=== PATIENT | male | born 1985 ===

== ENCOUNTER 2017-05-17 12:15 | Emergency (ER) | payer OTHER, SELFPAY ==
[2017-05-17 12:40] VITALS: BP 143/78; PULSE 78; RESP 16; TEMP 98.3; O2SAT 97
[2017-05-17] MEDS ORDERED: Naproxen 500 MG TAB PO STA (13:44)
--- NOTE | 2017-05-17 13:47 | ED PDOC ---
HPI: Headache Time Seen by Provider: 05/17/17 13:39 Chief Complaint (Nursing): Headache Chief Complaint (Provider): Headache History Per: Patient History/Exam Limitations: no limitations Onset/Duration Of Symptoms: Days (x 3) Current Symptoms Are (Timing): Still Present Additional Complaint(s): Antonio is a 31 y/o male who presents to the ED complaining of a continuous right- sided headache for the past 3 days. Patient denies fall, nausea, vomiting, fever or chills. He notes right sided upper gingival gum pain and states he feels he may be getting a molar. PMD: None Provided Past Medical History Reviewed: Historical Data, Nursing Documentation, Vital Signs Vital Signs: Last Vital Signs Temp 98.3 F 05/17/17 12:36 Pulse 78 05/17/17 12:36 Resp 16 05/17/17 12:36 BP 143/78 05/17/17 12:36 Pulse Ox 97 05/17/17 12:36 - Medical History PMH: No Chronic Diseases - Family History Family History: States: Unknown Family Hx - Home Medications Home Medications: Ambulatory Orders Medication Instructions Recorded Guaifenesin [Mucinex] 1,200 mg PO BID #14 ter 11/04/14 Ibuprofen [Motrin] 600 mg PO Q8 #20 tab 11/16/14 Naproxen 1 tab PO Q12 PRN #14 tab 05/17/17 Penicillin VK [Penicillin VK Tab] 500 mg PO QID #40 tab 05/17/17 - Allergies Allergies/Adverse Reactions: Allergies Allergy/AdvReac Type Severity Reaction Status Date / Time No Known Allergies Allergy Verified 05/17/17 12:36 Review of Systems ROS Statement: Except As Marked, All Systems Reviewed And Found Negative Constitutional: Negative for: Fever, Chills ENT: Positive for: Mouth Pain (upper gingival gum paim) Gastrointestinal: Negative for: Nausea, Vomiting Neurological: Positive for: Headache (right sided) Physical Exam - Reviewed Nursing Documentation Reviewed: Yes Vital Signs Reviewed: Yes - Physical Exam Appears: Positive for: Well, Non-toxic, No Acute Distress ENT: Positive for: Normal ENT Inspection (able to open and close jaw), TM Is/ Are (normal with no erythema), Other (mild tenderness to posterior upper right gingiva with no abcess or dental caries) Neurologic/Psych: Positive for: Alert, Oriented - ECG O2 Sat by Pulse Oximetry: 97 (RA) Pulse Ox Interpretation: Normal - Progress ED Course And Treament: CT HEAD: IMPRESSION: There are no acute hemorrhages or large acute infarcts seen. NAPROXEN 500MG X 1 DOSE Medical Decision Making Medical Decision Making: Time: 13:39 Initial Impression: Headache Initial Plan: --CT Head to ensure no intercranial abnormalities --Naproxen 500 mg Scribe Attestation: Documented by Lefty Villatoro, acting as a scribe for Thad Hawkins PA-C Provider Scribe Attestation: All medical record entries made by the Scribe were at my direction and personally dictated by me. I have reviewed the chart and agree that the record accurately reflects my personal performance of the history, physical exam, medical decision making, and the department course for this patient. I have also personally directed, reviewed, and agree with the discharge instructions and disposition. Disposition - Clinical Impression Clinical Impression: Pain, dental, Headache - Patient ED Disposition Is Patient to be Admitted: No - Disposition Referrals: Pierre Alvarado DDS [Staff Provider] - Disposition: Routine/Home Disposition Time: 15:28 Condition: FAIR Prescriptions: Naproxen 1 tab PO Q12 PRN #14 tab PRN Reason: Pain, Moderate (4-7) Penicillin VK [Penicillin VK Tab] 500 mg PO QID #40 tab Instructions: Toothache (ED), Acute Headache (ED) Forms: [employer] (Yakut)
[2017-05-17] MEDS ORDERED: Naproxen 500 MG TAB PO ONE (13:56)
--- NOTE | 2017-05-17 15:07 | CT ---
PROCEDURE: CT scan brain dated 05/17/2017. HISTORY: Right-sided headache. COMPARISON: No prior study available for comparison TECHNIQUE: Axial computed tomography images were obtained through the head/brain without intravenous contrast. Radiation dose: Total exam DLP = 832.68 mGy-cm. This CT exam was performed using one or more of the following dose reduction techniques: Automated exposure control, adjustment of the mA and/or kV according to patient size, and/or use of iterative reconstruction technique. FINDINGS: HEMORRHAGE: No acute parenchymal, subarachnoid or extra-axial hemorrhage. BRAIN: No evidence of large acute infarct. . There are no obvious parenchymal nor extra-axial masses or collections seen on this noncontrast study. Ventricular and sulcal size are within range of normal for this patient's stated age. VENTRICLES: No obstructive hydrocephalus. CALVARIUM: There are no acute calvarial fractures. Note made of a tiny radiopaque density within the left superior frontoparietal scalp which could represent tiny calcification with tiny radiopaque foreign body such as glass or gravel. . PARANASAL SINUSES: Mild mucoperiosteal inflammatory changes within the ethmoid air complex and sphenoid sinus. MASTOID AIR CELLS: Unremarkable as visualized. No inflammatory changes. OTHER FINDINGS: Orbits and contents appear grossly unremarkable. IMPRESSION: There are no acute hemorrhages or large acute infarcts seen.
== END 2017-05-17 16:12 | disposition home or self-care (01) ==
LOC: H.ER 12:15
DX: R51 Headache (principal); K08.89 Other specified disorders of teeth and supporting structures

== ENCOUNTER 2017-07-01 21:31 | Emergency (ER) | payer OTHER ==
[2017-07-01 21:51] VITALS: BP 128/76; PULSE 84; RESP 18; TEMP 98.6; O2SAT 99
[2017-07-01] MEDS ORDERED: Naproxen 500 MG TAB PO STA (23:04)
[2017-07-01] MEDS ORDERED: Naproxen 500 MG TAB PO ONE (23:20)
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
--- NOTE | 2017-07-02 11:26 | RAD ---
PROCEDURE: Cervical Spine Radiographs. HISTORY: Pain. COMPARISON: None. FINDINGS: BONES: Alignment maintained. No fracture. Dens Intact. There is some straightening of the normal lordotic curvature which may indicate muscular spasm. DISC SPACES: Normal. SOFT TISSUES: Normal. No prevertebral soft tissue swelling. OTHER FINDINGS: None. IMPRESSION: Possible muscular spasm. No evidence of fracture or dislocation.
--- NOTE | 2017-07-02 11:27 | RAD ---
PROCEDURE: Radiographs of the Lumbar Spine. HISTORY: pain COMPARISON: No prior. FINDINGS: BONES: Normal alignment. No listhesis. No fracture. DISC SPACES: Unremarkable. OTHER FINDINGS: None. IMPRESSION: Unremarkable radiographs of the lumbar spine.
== END 2017-07-02 00:22 | disposition home or self-care (01) ==
LOC: H.ER 21:31
DX: S16.1XXA Strain of muscle, fascia and tendon at neck level, initial encounter (principal); M54.9 Dorsalgia, unspecified; V43.52XA Car driver injured in collision with other type car in traffic accident, initial encounter; Y92.410 Unspecified street and highway as the place of occurrence of the external cause